=== PATIENT | female | born 1970 | race Two or more races ===

== ENCOUNTER → 2020-08-11 | Outpatient (CLI) | payer OTHER ==
--- NOTE | 2020-08-11 15:54 | RAD ---
EXAM: AP, lateral and lumbosacral spot views of the lumbar spine DATE: 08/11/2020 12:30 PM INDICATION: DEGENERATIVE DISC DISEASE. CHRONIC LBP WITH RADICULOPATHY COMPARISON: No Prior FINDINGS: Moderate L4-5 and L5-S1 disc height loss. Mild L1-2 disc height loss. Endplate osteophytes are seen. Advanced facet degenerative changes are seen. No acute fracture. No spondylolisthesis. Straightening of the normal lumbar lordosis. Moderate colonic stool content is seen. IMPRESSION: 1. Multilevel spondylosis as above 2. Negative acute fracture or subluxation. Electronically signed by: Mark Florez MD (08/11/2020 3:51 PM) [id number]
== END ==
LOC: RAD 12:06
PROVIDERS: ATTEND Family Medicine
DX: M47.26 Other spondylosis with radiculopathy, lumbar region (principal); M51.16 Intervertebral disc disorders with radiculopathy, lumbar region; G89.29 Other chronic pain; M25.78 Osteophyte, vertebrae
CPT/HCPCS: 72100